=== PATIENT | male | born 1995 | race Caucasian/White ===

== ENCOUNTER 2017-10-23 20:01 | Emergency (ER) | payer OTHER ==
[2017-10-23 20:13] VITALS: BP 131/82; PULSE 61; RESP 16; TEMP 97.8; O2SAT 100
[2017-10-23] MEDS ORDERED: Tdap Vaccine 0.5 ml Vial (10-64 yrs) IM ONE ×2 (20:26→21:12)
[2017-10-23] MEDS ORDERED: Naproxen 500 MG TAB PO STA (20:26)
--- NOTE | 2017-10-23 20:42 | ED PDOC ---
HPI: Skin/Bite Injury Time Seen by Provider: 10/23/17 20:14 Chief Complaint (Nursing): Bite Chief Complaint (Provider): Dog bite History Per: Patient Additional Complaint(s): Ar Tellez, a 22 year old male with no past medical history, presents to the emergency department for a dog bite on his left fourth finger. Patient states he works at the [employer] and was handing a client back their dog when the dog bit him. He reports that the dog was due for a rabies vaccination in June of this year but was otherwise up to date with vaccinations. 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 he is right hand dominant and did not take medication prior to arrival. Tetanus not up to date. PMD: Dr. Medina Past Medical History Reviewed: Historical Data, Nursing Documentation, Vital Signs Vital Signs: Last Vital Signs Temp 97.8 F 10/23/17 20:09 Pulse 61 10/23/17 20:09 Resp 16 10/23/17 20:09 BP 131/82 10/23/17 20:09 Pulse Ox 100 10/23/17 22:15 - Medical History PMH: No Chronic Diseases - Surgical History Surgical History: No Surg Hx - Family History Family History: States: Unknown Family Hx - Home Medications Home Medications: Ambulatory Orders Medication Instructions Recorded Clindamycin [Cleocin] 300 mg PO Q8 #21 cap 03/09/15 Sulfamethoxazole/Trimethoprim 1 tab PO BID #14 tab 03/09/15 [Bactrim DS 800 mg-160 mg] Bacitracin Ointment [Bacitracin] 1 applic TOP BID #1 tube 10/23/17 Clindamycin [Cleocin] 300 mg PO TID #21 cap 10/23/17 Ibuprofen [Motrin Tab] 600 mg PO Q6 PRN #20 tab 10/23/17 - Allergies Allergies/Adverse Reactions: Allergies Allergy/AdvReac Type Severity Reaction Status Date / Time Penicillins Allergy RASH Verified 10/23/17 20:09 Review of Systems ROS Statement: Except As Marked, All Systems Reviewed And Found Negative Musculoskeletal: Positive for: Other (dog bite to left 4th finger) Physical Exam - Reviewed Nursing Documentation Reviewed: Yes Vital Signs Reviewed: Yes - Physical Exam Comments: GENERAL APPEARANCE: Patient is awake, alert, oriented x 3, no acute distress. SKIN: Warm, dry; (-) cyanosis. NECK: Supple, FROM HAND: 2 puncture wounds to the distal left 4th digit, no active bleeding (+) Tenderness localized, (-) swelling, (+) mild ecchymosis (-) erythema (-) drainage, (-) deformity. (-) distal neurovascular deficit. Elbow, hand and remaining digits: (-) tenderness, full ROM. Sensation and capillary refill intact. NEURO AND PSYCH: Mental status as above. Gait: steady. Speech: clear. (-) facial asymmetry CHEST AND RESPIRATORY: (-) wheezing; (-) rales, (-) rhonchi, (-) rub; breath sounds equal bilaterally. HEART AND CARDIOVASCULAR: (-) irregularity - ECG O2 Sat by Pulse Oximetry: 100 (RA) Pulse Ox Interpretation: Normal Medical Decision Making Medical Decision Making: Time: 20:14 Impression: wound care, dog bite Initial Plan: --Tetanus 0.5 ml IM --Cleocin 300 mg PO --Naproxen 500 mg PO --Wounds irrigated with saline. Bacitracin and dressing applied. 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 2200 On re-evaluation,offers no additional symptoms. On exam, patient remains AAOx3, in no acute distress. On exam, neck is supple, lungs CTA, cardiac RRR, neuro exam shows no focal findings. VSS, stable for discharge. Diagnostic results d/w the patient in great detail. Dx of dog bite, wound care d /w the patient. Based on history, exam and diagnostic results plan will be for discharge and outpatient follow up with PMD. Advised to follow up with primary care physician in 1-2 days without fail. Advised to take medication as prescribed. Return to the emergency room at any time for any new or worsening symptoms. Patient states he fully agrees with and understands discharge instructions. States that he agrees with the plan and disposition. Verbalized and repeated discharge instructions and plan. I have given the patient opportunity to ask any additional questions. Scribe Attestation: Documented by Shanae Haney, acting as a scribe for Sherrie Shirley PA-C. Provider Scribe Attestation: All medical record entries made by the Scribe were at my direction and personally dictated by me. I have reviewed the chart and agree that the record accurately reflects my personal performance of the history, physical exam, medical decision making, and the department course for this patient. I have also personally directed, reviewed, and agree with the discharge instructions and disposition. Disposition - Clinical Impression Clinical Impression: Dog bite of hand - Patient ED Disposition Is Patient to be Admitted: No Counseled Patient/Family Regarding: Studies Performed, Diagnosis, Need For Followup, Rx Given - Disposition Referrals: Rachelle Delgado MD [Medical Doctor] - Disposition: Routine/Home Disposition Time: 22:03 Condition: STABLE Additional Instructions: The emergency medical care you received today was directed at your acute symptoms. If you were prescribed any medication, please fill it and take as directed. It may take several days for your symptoms to resolve. Return to the Emergency Department if your symptoms worsen, do not improve, or if you have any other problems. Please contact your doctor in 2 days for re-evaluation and follow up / or call one of the physicians/clinics you have been referred to that are listed on the Patient Visit Information form that is included in your discharge packet. Bring any paperwork you were given at discharge with you along with any medications you are taking to your follow up visit. Our treatment cannot replace ongoing medical care by a primary care provider (PCP) outside of the emergency department. Prescriptions: Bacitracin Ointment [Bacitracin] 1 applic TOP BID #1 tube Clindamycin [Cleocin] 300 mg PO TID #21 cap Ibuprofen [Motrin Tab] 600 mg PO Q6 PRN #20 tab PRN Reason: Pain, Moderate (4-7) Instructions: Animal Bites (DC), Wound Care (DC) Forms: [employer] ([place]) Print Language: CROATIAN - POA Present On Arrival: None
[2017-10-23] MEDS ORDERED: Naproxen 500 MG TAB PO ONE (21:12)
[2017-10-23] MEDS ORDERED: Bacitracin OINT 15GM TOP STA (22:12)
== END 2017-10-23 22:18 | disposition home or self-care (01) ==
LOC: H.ER 20:01
DX: S61.255A Open bite of left ring finger without damage to nail, initial encounter (principal); W54.0XXA Bitten by dog, initial encounter; Y92.89 Other specified places as the place of occurrence of the external cause; Y99.0 Civilian activity done for income or pay; Z23 Encounter for immunization; Z88.0 Allergy status to penicillin